=== PATIENT | female | born 1990 | race African-American/Black ===

== ENCOUNTER 2019-05-22 07:42 | Day surgery (SDC) | payer OTHER ==
[2019-05-20 13:44] LABS: Basophils # (auto) 0.1 uL; Basophils % (auto) 0.7 % (0.0-2.0); Eosinophils # (auto) 0.1 uL; Eosinophils % (auto) 0.5 % (0.0-7.0); Hemoglobin 14.2 g/dL (12.2-16.2); Lymphocytes # (auto) 2.9 uL; Lymphocytes % (auto) 26.5 % (10.0-50.0); Mean Corpuscular Hemoglobin 29.1 pg (28.0-32.0); Mean Corpuscular Hgb Conc. 33.8 g/dL (32.0-36.0); Mean Corpuscular Volume 86.2 fL (80.0-100.0); Monocytes # (auto) 0.6 uL; Monocytes % (auto) 5.1 % (0.0-12.0); Neutrophils # (auto) 7.4 uL; Neutrophils % (auto) 67.2 % (37.0-80.0); Nucleated Red Blood Cells % 0.1 %; Platelet Count (auto) 311 10^3/uL (140-450); Red Blood Cells 4.87 10^6/uL (4.0-5.20); Red Cell Distribution Width 13.9 % (11.8-14.3); White Blood Cell 11.1 10^3/uL (4.4-10.8)
[2019-05-20 13:54] LABS: Urine Bacteria FEW /hpf (None Seen); Urine Blood 1+ /uL (Negative); Urine Specific Gravity 1.007 (1.001-1.035); Urine WBC 1 /hpf (0 - 5)
[2019-05-20 14:00] LABS: INR 0.95 (0.9-1.15)
[2019-05-20 14:35] LABS: Albumin 4.3 g/dL (3.4-5.0); BUN/Creatinine Ratio 10.5; Calcium 9.5 mg/dL (8.5-10.1); Potassium 3.6 mmol/L (3.5-5.1)
[2019-05-20 14:38] LABS: Total Protein 8.5 g/dL (6.4-8.2)
[~2019-05-22] VITALS: Ht 167.6 cm; Wt 72.6 kg
[~2019-05-22 07:42] MED LIST: AMLO10TA13 PO; HYDR12.56 PO; LISI-646 PO
[2019-05-22] MEDS ORDERED: PROPOFOL 10 MG/ML 20 ML IV ONE (09:04)
[2019-05-22] MEDS ORDERED: MEPERIDINE HCL (25 MG/ML) 1ML VIAL ONE (09:04)
[2019-05-22] MEDS ORDERED: ONDANSETRON HCL 4 MG/2 ML VIAL ONE (09:04)
[2019-05-22] MEDS ORDERED: MIDAZOLAM HCL 1MG/1ML-2 ML VIAL ONE (09:04)
[2019-05-22] MEDS ORDERED: SODIUM CHLORIDE LOCK 10 ML ONE (09:04)
[2019-05-22] MEDS ORDERED: fentaNYL CITRATE 100 MCG/2 ML VL ONE (09:04)
[2019-05-22] MEDS ORDERED: LEVOFLOXACIN 500MG 100 ML IV ONE (10:09)
[2019-05-22] MEDS ORDERED: BUPIVACAINE W/ EPINEPH 0.25% INJ 50ML MDV ONE (10:26)
[2019-05-22] MEDS ORDERED: fentaNYL CITRATE 100 MCG/2 ML VL IV PRN (10:30)
[2019-05-22] MEDS ORDERED: KETOROLAC TROMETH 30 MG/ML 1ML VIAL IV ONE (10:30)
[2019-05-22] MEDS ORDERED: METOCLOPRAMIDE HCL 5MG/ml INJ 2ml VIAL IV PRN (10:30)
[2019-05-22] MEDS ORDERED: HYDROmorphone HCL 2 MG/ML VL IV PRN (10:30)
[2019-05-22] MEDS ORDERED: LIDOCAINE 2% (LOCAL ANESTH.) PF 5ml SDV ONE (10:43)
== END 2019-05-22 12:10 | disposition home or self-care (01) ==
LOC: SUR 07:42
PROVIDERS: ATTEND Surgery
DX: D72.822 Plasmacytosis (principal); I10 Essential (primary) hypertension; Z98.890 Other specified postprocedural states; Z87.59 Personal history of other complications of pregnancy, childbirth and the puerperium; Z79.899 Other long term (current) drug therapy; Z88.8 Allergy status to other drugs, medicaments and biological substances; Z88.1 Allergy status to other antibiotic agents; Z88.2 Allergy status to sulfonamides; Z88.0 Allergy status to penicillin
CPT/HCPCS: 36415; 38500; 80053; 81001; 84702; 85025; 85610; 85730; 88305; 88341; 88342; J1956; J2001; J2175; J2250; J2405; J2704; J3010

== ENCOUNTER → 2019-07-11 | Outpatient (CLI) | payer OTHER | END | disposition home or self-care (01) | LOC: LAB 15:00 | PROVIDERS: ATTEND Urology | DX: R31.9 Hematuria, unspecified (principal) | CPT/HCPCS: 88108 ==